=== PATIENT | female | born 1970 | race Caucasian/White ===

== ENCOUNTER 2018-09-19 09:00 | Outpatient (REF) | payer MEDICAID, SELFPAY ==
[2018-09-19 13:54] LABS: Glucose 100 mg/dL (70-100); TSH (W/Ref FT4) 7.97 uIU/mL (0.358-3.74)
[2018-09-19 14:16] LABS: FREE T4 1.03 ng/dL (0.76-1.46)
== END 2018-09-19 09:20 ==
LOC: NCHCN 09:00
PROVIDERS: Visit Provider Family Medicine
DX: E03.9 Hypothyroidism, unspecified (principal); Z00.00 Encounter for general adult medical examination without abnormal findings
CPT/HCPCS: 82947; 84439; 84443

== ENCOUNTER 2019-03-06 10:14 | Outpatient (REF) | payer MEDICAID, SELFPAY ==
[2019-03-06 14:08] LABS: Anion Gap 5.3 mmol/L (3-11); BUN 21 mg/dL (7-18); CO2 29.7 mmol/L (21.0-32.0); Calcium 9.1 mg/dL (8.5-10.1); Chloride 107 mmol/L (98-107); Glucose 79 mg/dL (70-100); Potassium 4.5 mmol/L (3.5-5.1); Sodium 142 mmol/L (136-145); TSH (W/Ref FT4) 0.67 uIU/mL (0.358-3.74)
[2019-03-06 14:17] LABS: Hemoglobin A1C 5.7 % (4.5-6.2)
== END 2019-03-06 10:34 ==
LOC: NCHCN 10:14
PROVIDERS: PCP Family Medicine; Visit Provider Family Medicine
DX: E03.9 Hypothyroidism, unspecified (principal); R73.9 Hyperglycemia, unspecified; R68.2 Dry mouth, unspecified
CPT/HCPCS: 80048; 83036; 84443

== ENCOUNTER 2020-06-17 21:07 | Outpatient (REF) | payer MEDICAID, SELFPAY ==
[2020-06-23 05:13] LABS: Amphetamines Interpretation Positive.; MDA (Ecstasy Metabolite) Negative ng/mL (Cutoff: 25); MDMA (Ecstasy) Negative ng/mL (Cutoff: 25); Methamphetamine Negative ng/mL (Cutoff: 25); Phentermine Negative ng/mL (Cutoff: 25); Pseudoephedrine/Ephedrine Negative ng/mL (Cutoff: 25)
== END 2020-06-17 21:27 ==
LOC: NCHCN 21:07
PROVIDERS: PCP Family Medicine; Visit Provider Family Medicine
DX: F11.20 Opioid dependence, uncomplicated (principal)
CPT/HCPCS: 80324

== ENCOUNTER 2021-04-14 15:17 | Outpatient (REF) | payer MEDICAID, SELFPAY ==
[2021-04-14 14:56] LABS: HCT 39.3 % (36.0-46.0); HGB 12.6 g/dL (11.2-15.7); MCH 29.9 pg (27.0-33.0); MCHC 32.1 % (32.0-36.0); MCV 93.1 fL (80-95); MPV 12.6 fL (8.0-11.0); Platelet Count 193 10^3/uL (130-400); RBC 4.22 10^6/uL (3.93-5.22); RDW 13.7 % (11.7-14.6); RDW-SD 46.3 fL; WBC 6.72 10^3/uL (4.4-10.8)
[2021-04-14 15:18] LABS: Anion Gap 11.1 mmol/L (3-11); BUN 19 mg/dL (7-18); CO2 25.9 mmol/L (21.0-32.0); CREATININE 0.8 mg/dL (0.55-1.02); Calcium 8.6 mg/dL (8.5-10.1); Chloride 106 mmol/L (98-107); Glucose 97 mg/dL (74-106); Potassium 4.2 mmol/L (3.5-5.1); Sodium 143 mmol/L (136-145); TSH (W/Ref FT4) 1.91 uIU/mL (0.36-3.74)
[2021-04-14 15:20] LABS: Hemoglobin A1C 5.8 % (<5.7)
== END 2021-04-14 15:18 | disposition home or self-care (01) ==
LOC: NCHCN 15:17
PROVIDERS: PCP Family Medicine; Visit Provider Family Medicine
DX: R03.0 Elevated blood-pressure reading, without diagnosis of hypertension (principal); E03.9 Hypothyroidism, unspecified; Z13.1 Encounter for screening for diabetes mellitus; Z00.00 Encounter for general adult medical examination without abnormal findings
CPT/HCPCS: 80048; 85027; 83036; 84443

== ENCOUNTER 2024-01-03 22:18 | Emergency (ER) | payer MEDICAID, SELFPAY ==
[2024-01-03 22:20] VITALS: BP 149/91; PULSE 111; RESP 16; TEMP 36.3; O2SAT 100
[2024-01-03 22:35] VITALS: BP 149/91; PULSE 111; RESP 16; TEMP 36.3; O2SAT 100
--- NOTE | 2024-01-03 22:45 | ED.GENADUL_ITS ---
Discharge Plan Disposition Patient Disposition: Against Medical Advice Condition: Stable Discharge Details Clinical Impression: Facial swelling, Dental infection Primary Care Provider: Natalie Covington ED Provider: Rima Ness Home Meds and New Rx's Prescriptions: New amoxicillin-pot clavulanate [Augmentin XR] 1,000-62.5 mg tablet extended release 12 hr 1 tab PO Q12H Qty: 28 0RF Continued levothyroxine [Euthyrox] 175 mcg tablet 175 mcg PO DAILY pregabalin [Lyrica] 150 mg capsule 150 mg PO TID dextroamphetamine-amphetamine [Adderall XR] 25 mg capsule,extended release 24hr 25 mg PO BID diclofenac sodium 1 % gel 2 g topical DAILY PRN Rx Instructions: back, knees, neck Discharge Instructions Instructions: Toothache (ED) Additional Instructions: Tylenol and ibuprofen over the counter for pain. Antibiotic twice a day for the next two weeks. Return immediately if your symptoms worsen or you change your mind. Call your primary care provider and your dentist today to schedule appointments for within the next 24-48 hours to followup on your visit here. Referrals: Natalie Covington MD [Primary Care Provider] - [facility] General Mode of arrival: ambulatory . Date/Time Provider Initiated Documentation: 01/03/24 22:24 . Limitations to Documentation: no limitations . Information obtained by: patient . HPI Narrative: 53yo F with hypothyroid presenting for dental pain and facial swelling. Saw dentist 6 weeks ago for pain on right; was thought to be related to tooth grinding. Today began to have right facial swelling and worsening pain. Some difficulty swallowing; no difficulty with secretions, taking good PO. No fevers, chills, rash, neck pain, difficulty breathing, or other concerns. Related Data Home Medications Medication Instructions Recorded Confirmed dextroamphetamine-amphetamine ER 25 mg PO BID 01/03/24 01/03/24 25 mg 24hr capsule,extend release (Adderall XR) diclofenac sodium 1 % topical gel 2 g topical DAILY PRN 01/03/24 01/03/24 levothyroxine 175 mcg tablet 175 mcg PO DAILY 01/03/24 01/03/24 (Euthyrox) pregabalin 150 mg capsule (Lyrica) 150 mg PO TID 01/03/24 01/03/24 amoxicillin-potassium clavulanate 1 tab PO Q12H #28 tabs 01/04/24 1,000 mg-62.5 mg tablet,ext.rel 12hr (Augmentin XR) Previous Rx's Medication Instructions Recorded amoxicillin-potassium clavulanate 1 tab PO Q12H #28 tabs 01/04/24 1,000 mg-62.5 mg tablet,ext.rel 12hr (Augmentin XR) Allergies Allergy/AdvReac Type Severity Reaction Status Date / Time No Known Allergies Allergy Verified 01/03/24 22:25 General Stated Complaint: DentalOral HALLIE: 4 Review of Systems Narrative: see HPI Exam Narrative Exam Narrative: General: Alert, well appearing, well nourished, in no acute distress. Head: Normocephalic, atraumatic Neck: Trachea midline, ?Neck supple. ENT: ?MMM.? No oropharygeal lesions or exudate. Poor dentition. Right facial swelling, fullness, and tenderness. No visible intraoral, periapical, or apical abscess. Uvula midline. Cardiac: ?No cyanosis. Well perfused. Resp: No respiratory distress. CTAB. Speaking in full sentences. No difficulty with secretions. Abd: ?Non-distended Extremities: ?No deformities.? No peripheral edema. Neurologic: GCS 15. ? Moves all extremities freely against gravity Course Vital Signs Vital signs: Vital Signs Temperature 36.3 C L 01/03/24 22:20 Pulse 111 H 01/03/24 22:20 Respiratory Rate 16 01/03/24 22:20 Blood Pressure 149/91 H 01/03/24 22:20 Pulse Oximetry 100 01/03/24 22:20 Temperature 36.3 C L 01/03/24 22:35 Temperature Source Temporal Artery Scan 01/03/24 22:35 Pulse 111 H 01/03/24 22:35 Respiratory Rate 16 01/03/24 22:35 Respiratory Effort Normal, Non-Labored 01/03/24 22:28 Blood Pressure 149/91 H 01/03/24 22:35 Blood Pressure Position Sitting 01/03/24 22:35 Pulse Oximetry 100 01/03/24 22:35 Oxygen Delivery Method Room Air 01/03/24 22:35 Oxygen Flow Rate 0 01/03/24 22:20 Pain Level 8 01/03/24 22:35 Medical Decision Making 53yo F with hypothyroid presenting for dental pain and facial swelling. Saw dentist 6 weeks ago for pain on right; was thought to be related to tooth grinding. Today began to have right facial swelling and worsening pain. Borderline hypertensive and tachycardiac on arrival after ambulating into triage. Well appearing on exam, not overtly septic and no systemic symptoms; would not treat empirically with IFVB. Right facial swelling on exam with diffusely poor dentition, maxillary molars on right tender to percussion, no visible intraoral abscess amenable to drainage. No trismus, no neck tenderness, no airway compromise. Not concerning for Asaf's or deep space neck infection. Will give single dose of IV clindamycin, tylenol/toradol for pain control, and evaluate for extent of infection with labs and CT imaging. Labs reviewed as below, CBC reassuring with no leukocytosis, CMP with no significant abn ormalities, lactate normal. CT facial independently reviewed; marked soft tissue swelling with possible abscess on my view; radiology read pending. Regretably VRAD with extended read times overnight tonight. On reassessment patient is feeling much improved, does not want to stay for imaging results and requests to leave AMA and be updated with imaging read if it should require intervention. She states that she wants to go home and sleep. I strongly advised Ms. Campbell to remain in the ED awhile longer and await imaging read as depending on presence/location of abscess she may need ENT/OMFS consult for possible drainage and/or hospital admission for IV antibiotics. I advised her that not treating this in a timely fashion could lead to worsening infection, sepsis, airway compromise, , and disability. She verbalized understanding of my concerns and states her willingness to return should she need intervention, provides contact information for herself and multiple family members. I will prescribe a course of augmentin for odontogenic infection. Left against medical advice; discharge instructions and return precautions were reviewed with patient who verbalized understanding. All questions were answered and she is in full agreement with the plan. VRAD read below, resulted after patient left department. No drainable abscess. Okay to followup with PCP/dentist and continue augmentin as prescribed. Imaging Data Radiologic Study: Imaging: CT Scan Radiologist's impression: IMPRESSION: 1. Large dental cavity in the crown of the posterior right maxillary molar with associated periapical lucency suspicious for chronic apical periodontitis or a small periapical abscess. Associated defect in the floor of the right maxillary sinus allowing communication between the periapical space and the right maxillary sinus. Chronic right maxillary sinusitis, presumably of dental origin. 2. Additional dental findings, as above. 3. Hazy subcutaneous density in the right face. Acute cellulitis suspected, possibly of dental origin. No frankly organized drainable soft tissue abscess is seen. 4. Unusual hyperdense masslike finding in the left neck with an appearance reminiscent of thyroid tissue, possibly an unusually located off midline ectopic thyroid gland although clinical correlation is recommended. Lab Data Lab results reviewed: Yes I reviewed the patient's lab results. Labs: Laboratory Tests Range/Units 01/03/24 23:15 WBC (4.4-10.8) 10^3/uL 10.07 RBC (3.93-5.22) 10^6/uL 4.40 Hgb (11.2-15.7) g/dL 13.2 Hct (36.0-46.0) % 40.4 MCV (80-95) fL 92 MCH (27.0-33.0) pg 30.0 MCHC (32.0-36.0) % 32.7 RDW (11.7-14.6) % 12.8 Plt Count (130-400) 10^3/uL 165 MPV (8.0-11.0) fL 12.1 H Immature Gran % % 0.2 Neutrophils % % 78.1 Lymphocytes % % 13.5 Monocytes % % 7.1 Eosinophils % % 0.5 Basophils % % 0.6 Nucleated RBC % (0.0-0.3) % 0.0 Absolute Neutrophils (1.2-6.7) 10^3/uL 7.86 H Absolute Lymphocytes (1.2-3.4) 10^3/uL 1.36 Absolute Monocytes (0.1-0.8) 10^3/uL 0.72 Absolute Eosinophils (0.0-0.7) 10^3/uL 0.05 Absolute Basophils (0.0-0.2) 10^3/uL 0.06 VBG Lactate (0.6-1.4) mmol/L 1.1 Sodium (136-145) mmol/L 142 Potassium (3.5-5.1) mmol/L 4.0 Chloride (98-107) mmol/L 104 Carbon Dioxide (21.0-32.0) mmol/L 27.3 Anion Gap (3-11) mmol/L 10.7 BUN (7-18) mg/dL 21 H Creatinine (0.55-1.02) mg/dL 0.9 Est GFR (CKD-EPI 2020) (mL/min/1.73m2) 75.97 Glucose (74-106) mg/dL 134 H Calcium (8.5-10.1) mg/dL 9.1 Total Bilirubin (0.2-1.0) mg/dL 0.5 AST (15-37) U/L 18 ALT (14-59) U/L 24 Alkaline Phosphatase (46-116) U/L 90 Total Protein (6.4-8.2) g/dL 7.9 Albumin (3.4-5.0) g/dL 4.0 Quality:[facility] Health Related Social Needs: No Data to Display PFSH All Active Problems (Updated 01/04/24 @ 02:16 by Rima Ness MD) Dental infection (Acute) Facial swelling (Acute) Social History Smoking/Tobacco Use Status: Former Tobacco Use Quit Date: 01/26/23 Smoking risk assessment performed?: Yes Alcohol Intake: current Alcohol Intake frequency: holidays/special occasions only Drug use: Never Substance use type: does not use Housing: house Do you feel safe at home: Yes Do you feel safe in your relationship?: Yes
--- NOTE | 2024-01-03 22:45 | DI.CT_ITS ---
Exam(s) CT FACIAL W EXAM: CT FACIAL W CLINICAL HISTORY: right facial swelling, dental pain. TECHNIQUE: Imaging Protocol: Axial computed tomography images with coronal and sagittal reformatted images were created and reviewed CONTRAST MATERIAL: Intravenous: Omnipaque 350 Contrast volume:100 mL COMPARISON: No exams were available for comparison FINDINGS: There is artifact from the patient's dental amalgam. Facial Bones: No definite fracture is noted in facial bones. There is a lucency seen around the low t of the 2nd right maxillary molar suspicious for a periapical abscess. There does appear to be comm unication with the floor of the right maxillary sinus. Sinuses and Mastoids: There is marked mucosal thickening seen in the right maxillary sinus. There i s thickening of the zelaya of the right maxillary sinus consistent with chronic sinusitis. The remain ing visualized paranasal sinuses are clear. No air-fluid levels are seen. The mastoid air cells are well pneumatized. Globes, extraocular muscles, optic nerves and retrobulbar fat: Normal. Upper aerodigestive tract: Normal. Mandible and bilateral temporomandibular joints: Normal. Soft tissues: There is edema and swelling seen in the soft tissues overlying the right cheek. No foc al fluid collection is seen to suggest an abscess. The facial musculature are unremarkable. Enhancement: No abnormal enhancement. IMPRESSION: 1. There is a lucency seen at the root of the right 2nd maxillary molar suspicious for periapical abs cess. There is does appear to be a communication with the right maxillary sinus. 2. Chronic right maxillary sinusitis. 3. Infiltration in the subcutaneous tissues overlying the right cheek suspicious for acute cellulitis . No abscess is identified. RADIATION DOSE DELIVERED: 676.94mGy.cm Total DLP DATA REPOSITORY: All CT scans at this facility are submitted to the National Radiology Data Registry (NRDR) Dose Index Registry (DIR) with the [employer] (A[employer]). RADIATION OPTIMIZATION: All CT scans at this facility use at least one of these dose optimization te chniques: automated exposure control; mA and/or kV adjustment per patient size (includes targeted exa ms where dose is matched to clinical indication); or iterative reconstruction.
[2024-01-03] MEDS: Ketorolac 15 MG/ML VIAL IVP (23:16)
[2024-01-03] MEDS: CLINDAMYCIN 600 MG/50 ML BAG 100 MG IVPB (23:16)
[2024-01-03] MEDS: Acetaminophen 500 MG TAB 1000 MG PO (23:16)
[2024-01-03 23:21] LABS: Abs Immature Grans 0.02 10^3/uL (0.0-0.06); Absolute Basophil Count 0.06 10^3/uL (0.0-0.2); Absolute Eosinophil Count 0.05 10^3/uL (0.0-0.7); Absolute Lymphocyte Count 1.36 10^3/uL (1.2-3.4); Absolute Monocyte Count 0.72 10^3/uL (0.1-0.8); Absolute Neutrophil Count 7.86 10^3/uL (1.2-6.7); Basophils % 0.6 %; Eosinophils % 0.5 %; HCT 40.4 % (36.0-46.0); HGB 13.2 g/dL (11.2-15.7); Immature Grans % 0.2 %; Lymphocytes % 13.5 %; MCHC 32.7 % (32.0-36.0); MCV 92 fL (80-95); MPV 12.1 fL (8.0-11.0); Monocytes % 7.1 %; Neutrophils % 78.1 %; Platelet Count 165 10^3/uL (130-400); RDW 12.8 % (11.7-14.6); RDW-SD 43.4 fL; WBC 10.07 10^3/uL (4.4-10.8)
[2024-01-03 23:22] LABS: Lactate 1.1 mmol/L (0.6-1.4)
[2024-01-03 23:39] LABS: ALT 24 U/L (14-59); AST 18 U/L (15-37); Alkaline Phosphatase 90 U/L (46-116); Anion Gap 10.7 mmol/L (3-11); BUN 21 mg/dL (7-18); Bilirubin, Total 0.5 mg/dL (0.2-1.0); CO2 27.3 mmol/L (21.0-32.0); CREATININE 0.9 mg/dL (0.55-1.02); Calcium 9.1 mg/dL (8.5-10.1); Chloride 104 mmol/L (98-107); Estimated GFR 75.97 (mL/min/1.73m2); Glucose 134 mg/dL (74-106); Sodium 142 mmol/L (136-145); Total Protein 7.9 g/dL (6.4-8.2)
[2024-01-04] MEDS: Omnipaque 350 MG/ML 100 ML BTL IJ (00:03)
[2024-01-04] MEDS: Normal Saline - Diluent 50 ML VIAL IJ (00:04)
[2024-01-04 00:16] VITALS: BP 134/89; PULSE 87; RESP 16; TEMP 36.4; O2SAT 100
--- NOTE | 2024-01-04 02:29 | DI.VRAD_ITS ---
PROCEDURE INFORMATION: Exam: CT Maxillofacial With Contrast Exam date and time: 01/03/2024 11:49 PM Age: 53 years old Clinical indication: Mass, lump, or swelling; Other: RT facial swelling; Jaw pain; Additional info: RT facial swelling, dental pain TECHNIQUE: Imaging protocol: Computed tomography of the face with contrast. Contrast material: OMNI 350; Contrast volume: 100 ml; Contrast route: INTRAVENOUS (IV); COMPARISON: No relevant prior studies available. FINDINGS: Orbital cavities: The globes and intraorbital structures appear grossly intact. Bones: No acute facial fracture is seen Paranasal sinuses: There is thick mucoperiosteal thickening in the right maxillary sinus with sclerotic thickening of the right maxillary zealya in keeping with chronic sinusitis, probably of dental origin. Otherwise, the paranasal sinuses appear clear. Mastoid air cells: The mastoid air cells appear well-aerated. Auditory system: The middle ear cavities appear clear. Salivary glands: The submandibular salivary glands appear grossly normal in size; however, the left parotid gland is partially excluded from view. There is a relatively hyperdense 2.3 cm x 1.0 cm x 2.2 cm masslike finding in the left neck inferior to the left submandibular salivary gland on images 1-25 of series 3 containing small indeterminate hypoattenuating lesions with an appearance reminiscent of thyroid tissue. Unusually located ectopic thyroid gland? Clinical correlation recommended. Soft tissues: There is vague subcutaneous fat stranding in the right face. Within the limits of visualization, no frankly organized drainable soft tissue fluid collection is seen. Dental: The teeth are partially obscured by artifact from metallic dental work. The crown of the left anterior mandibular bicuspid has been almost completely destroyed by a dental cavity. There appears to have been a prior root canal performed on this tooth. There is suggestion of a small dental cavity in the crown of the anterior left mandibular molar. There is a large dental cavity in the crown of the posterior right maxillary molar with associated periapical lucency and a bony defect in the floor of the right maxillary sinus allowing communication between the periapical space and the maxillary sinus. IMPRESSION: 1. Large dental cavity in the crown of the posterior right maxillary molar with associated periapical lucency suspicious for chronic apical periodontitis or a small periapical abscess. Associated defect in the floor of the right maxillary sinus allowing communication between the periapical space and the right maxillary sinus. Chronic right maxillary sinusitis, presumably of dental origin. 2. Additional dental findings, as above. 3. Hazy subcutaneous density in the right face. Acute cellulitis suspected, possibly of dental origin. No frankly organized drainable soft tissue abscess is seen. 4. Unusual hyperdense masslike finding in the left neck with an appearance reminiscent of thyroid tissue, possibly an unusually located off midline ectopic thyroid gland although clinical correlation is recommended. Dictated and Authenticated by: Homero Dixon MD. Ordering:TOÑO Abarca MD
== END 2024-01-04 02:30 | disposition left against medical advice (07) ==
LOC: ER 01-04 02:26
PROVIDERS: Emergency Provider Student in an Organized Health Care Education/Training Program; PCP Family Medicine
DX: R22.0 Localized swelling, mass and lump, head (principal); K04.7 Periapical abscess without sinus
CPT/HCPCS: 36415; 80053; 96365; 96375; 99285; 70487; 83605; 85025; 99283; J0737; J1885; J3490